=== PATIENT | female | born 1985 | race Caucasian/White ===

== ENCOUNTER 2018-03-24 23:00 | Emergency (ER) | payer OTHER ==
--- NOTE | 2018-03-24 23:42 | EDPHY ---
H & P Time Seen by Provider: 03/24/18 23:02 HPI/ROS: CHIEF COMPLAINT: Numbness, tingling, possible allergic reaction. HISTORY OF PRESENT ILLNESS: Patient states that she was diagnosed with a sinus infection today at her PCPs office at [facility]. She states that she has had upper respiratory infectious symptoms for about 1 and half weeks. She has had a significant cough. Her other family members have been ill with same. Yesterday she developed a lot of sinus pressure and this morning she describes it as"unbearable". She states she may have had a"little"fever last night but did not measure it. Her primary care physician prescribed amoxicillin and prednisone. She took 40 mg of prednisone around 11 today. She noticed the tingling of her arms and legs as well as other areas around 8:00 p.m.. She noticed a bit of an upset stomach but no vomiting. She describes"cotton mouth" . She denies rash, shortness of breath, chest pain or pain anywhere. Contents of 10 point review of systems otherwise negative except for what is mentioned in HPI. General Appearance: Alert, no distress. Eyes: Pupils equal and round no icterus HEENT: Oropharynx clear, no edema. Nares with mild erythema clear drainage. Mild left maxillary sinus tenderness. No cervical lymphadenopathy. Respiratory: No respiratory distress, lungs clear to auscultation bilaterally no wheezes. Cardiac: Regular rate and rhythm no murmurs rubs or gallops. No lower extremity edema. Neurological: Awake, alert, no focal deficits. Skin: Warm and dry, no rashes. Musculoskeletal: Neck is supple nontender. Extremities are symmetrical, full range of motion, no edema. Psychiatric: Patient is oriented X 3, there is no agitation. Medical/surgical history: Pulmonary embolism 9 years ago thought secondary to control pills Social history: Denies tobacco, EtOH, drugs Smoking Status: Never smoked Constitutional: Initial Vital Signs Temperature (C) 36.5 C 03/24/18 23:06 Heart Rate 128 H 03/24/18 23:06 Respiratory Rate 16 03/24/18 23:06 Blood Pressure 143/105 H 03/24/18 23:06 O2 Sat (%) 98 03/24/18 23:06 O2 Delivery Mode Room Air Allergies/Adverse Reactions: No Known Allergies Allergy (Unverified 01/12/09 22:41) Home Medications: Medication Instructions Recorded HYOSCYAMINE SULFATE [LEVSIN-SL] 0.125 - 0.25 mg SL Q6 PRN #20 09/29/15 tab.subl Ondansetron Odt [Zofran Odt] 4 - 8 mg PO Q4PRN PRN #4 tab 09/29/15 Medical Decision Making Differential Diagnosis: Differential diagnosis includes but is not limited to anaphylaxis, other allergic reaction, medication side-effect, panic attack, anxiety. After evaluation suspect patient is experiencing normal side effects of prednisone. She does not think she has ever had this medication before. She was not provided any information about side effects to expect at her PCPs office. No signs of anaphylaxis, airway obstruction, rash, hemodynamic instability. Patient anxious on arrival but calmed appropriately with vital signs within normal limits on discharge. Patient will likely stop taking the prednisone but continue the amoxicillin. Discussed other methods to reduce sinus pressure and pain. Stable for discharge. Departure - Departure Clinical Impression: Medication side effect Condition: Good Instructions: Prednisone (By mouth) Additional Instructions: I think that your symptoms tonight are caused by the prednisone and they are normal side effects, not an allergic reaction. You can stop the prednisone if you do not like the side effects. You should contact her primary care let them know that you're doing this. Continue the amoxicillin as prescribed. You can try ibuprofen, Tylenol, Sudafed for sinus pressure and pain. Return to the emergency department for any difficulty breathing, chest pain, worrisome rash or other concerning new symptoms. Referrals: Patient,NotPresent [Primary Care Provider] - As per Instructions
[2018-03-24 23:49] VITALS: BP 132/86
== END 2018-03-24 23:56 | disposition home or self-care (01) ==
LOC: CED 23:00
DX: R20.0 Anesthesia of skin (principal); R20.2 Paresthesia of skin; J32.9 Chronic sinusitis, unspecified; R05 Cough; K30 Functional dyspepsia; Z86.711 Personal history of pulmonary embolism
CPT/HCPCS: 99282-ER